=== PATIENT | male | born 1945 | race Caucasian/White ===

== ENCOUNTER 2017-11-24 07:41 | Emergency (ER) | payer OTHER, MEDICARE ==
[~2017-11-24] VITALS: Ht 167.6 cm; Wt 105.0 kg
[~2017-11-24 07:41] MED LIST: ASMANEX; COMBAER; ENAL5TAB98; TOPR25TA2
[2017-11-24 07:44] VITALS: BP 141/84; PULSE 103; RESP 16; TEMP 97.4; O2SAT 99
--- NOTE | 2017-11-24 08:08 | PD ---
HPI Chief Complaint: Edema Time Seen by Provider: 08:01 Travel History International Travel<30 days: No Contact w/Intl Traveler<30days: No Traveled to known affect area: No History of Present Illness HPI 72-year-old male patient with history of CAD status post stenting, previous [place], recent bouts of pneumonia, presents to the ER today for 2 weeks history of worsening leg swelling, he has also noted some coughing with green phlegm her last few days, states that he thinks he needs antibiotics for the lungs. He had been seen recently at another hospital and had been given steroids. He denies any fevers, chest pains, abdominal pains, or any other symptoms. He denies orthopnea. Modifying Factors: None Associated Signs & Symptoms: Bilateral leg swelling for 2 weeks, coughing with green phlegm Risk Factors: Cardiac history PFSH Past Medical History Hx Anticoagulant Therapy: Yes Arthritis: No Asthma: No Autoimmune Disease: No Blood Disorders: No Anxiety: No Depression: No Heart Rhythm Problems: No Cancer: No Cardiovascular Problems: Yes High Cholesterol: Yes Chemotherapy: No Chest Pain: Yes Congestive Heart Failure: No COPD: Yes Cerebrovascular Accident: No Coronary Artery Disease: Yes Diabetes: No Endocrine: No GERD: No Glaucoma: No Genitourinary: No Headaches: No Hepatitis: No Hiatal Hernia: No Hypertension: Yes Immune Disorder: No Kidney Stones: No Musculoskeletal: No Neurologic: No Psychiatric: No Respiratory: Yes Myocardial Infarction: Yes (1993) Radiation Therapy: No Renal Failure: No Seizures: No Sickle Cell Disease: No Sleep Apnea: No Thyroid Disease: No Ulcer: No Past Surgical History Abdominal Surgery: No AICD: No Cardiac Surgery: No Ear Surgery: No Endocrine Surgery: No Eye Surgery: No Genitourinary Surgery: No Gynecologic Surgery: No Joint Replacement: No Oral Surgery: No Pacemaker: No Thoracic Surgery: No Social History Alcohol Use: No ([employer] IS AN ALCOHOLIC SOBER FOR 1 YEAR) Tobacco Use: Yes (1PPD) Substance Use: Yes (SMOKED MARIJUANA RECENTLY QUIT, SMOKED COUPLE TIMES A WEEK FOR 40 YEARS) Allergies-Medications (Allergen,Severity, Reaction): Coded Allergies: No Known Allergies (Verified Allergy, Severe, 11/24/17) Reported Meds & Prescriptions Reported Meds & Active Scripts Active Reported Finasteride 5 Mg Tab 5 Mg PO DAILY Do not crush. Plavix (Clopidogrel Bisulfate) 75 Mg Tab 75 Mg PO DAILY Pravastatin 40 Mg Tab 40 Mg PO DAILY Combivent Respimat Inh (Ipratropium-Albuterol Inh) 20-100 Intermediate/Act Aero 1 Puff INH QID Metoprolol Succinate ER 24 HR (Metoprolol Succinate) 25 Mg Tab 25 Mg PO BID Review of Systems Except as stated in HPI: all other systems reviewed are Neg Physical Exam Narrative GENERAL: Well-developed elderly white male patient currently and mild distress. Awake and oriented 3. SKIN: Focused skin assessment warm/dry. HEAD: Atraumatic. Normocephalic. EYES: Pupils equal and round. No scleral icterus. No injection or drainage. ENT: No nasal bleeding or discharge. Mucous membranes pink and moist. NECK: Trachea midline. No JVD. Supple. CARDIOVASCULAR: Regular rate and rhythm. No murmur appreciated. RESPIRATORY: No accessory muscle use. Decreased throughout. Breath sounds equal bilaterally. GASTROINTESTINAL: Abdomen soft, non-tender, nondistended. Hepatic and splenic margins not palpable. MUSCULOSKELETAL: No obvious deformities. No clubbing. No cyanosis. +3 bilateral pitting leg edema. NEUROLOGICAL: Awake and alert. No obvious cranial nerve deficits. Motor grossly within normal limits. Normal speech. PSYCHIATRIC: Appropriate mood and affect; insight and judgment normal. Data Data Last Documented VS Vital Signs Date Time Temp Pulse Resp B/P (MAP) Pulse Ox O2 Delivery O2 Flow Rate FiO2 11/24/17 08:30 90 19 124/58 (80) 97 Room Air 11/24/17 08:17 2.00 11/24/17 07:44 97.4 Orders Orders Complete Blood Count With Diff (11/24/17 08:02) Comprehensive Metabolic Panel (11/24/17 08:02) B-Type Natriuretic Peptide (11/24/17 08:02) Act Partial Throm Time (Ptt) (11/24/17 08:02) Prothrombin Time / Inr (Pt) (11/24/17 08:02) Iv Access Insert/Monitor (11/24/17 08:02) Electrocardiogram (11/24/17 08:02) Ecg Monitoring (11/24/17 08:02) Oximetry (11/24/17 08:02) Oxygen Administration (11/24/17 08:02) Chest, Single Ap (11/24/17 08:02) Sodium Chloride 0.9% Flush (Ns Flush) (11/24/17 08:15) Us Leg Venous Doppler Bilat (11/24/17 08:02) Furosemide Inj (Lasix Inj) (11/24/17 09:15) Labs Laboratory Tests Test 11/24/17 08:05 White Blood Count 7.1 TH/MM3 Red Blood Count 4.19 MIL/MM3 Hemoglobin 13.7 GM/DL Hematocrit 41.1 % Mean Corpuscular Volume 98.0 FL Mean Corpuscular Hemoglobin 32.7 PG Mean Corpuscular Hemoglobin Concent 33.4 % Red Cell Distribution Width 14.5 % Platelet Count 270 TH/MM3 Mean Platelet Volume 8.1 FL Neutrophils (%) (Auto) 51.5 % Lymphocytes (%) (Auto) 33.9 % Monocytes (%) (Auto) 10.0 % Eosinophils (%) (Auto) 4.0 % Basophils (%) (Auto) 0.6 % Neutrophils # (Auto) 3.7 TH/MM3 Lymphocytes # (Auto) 2.4 TH/MM3 Monocytes # (Auto) 0.7 TH/MM3 Eosinophils # (Auto) 0.3 TH/MM3 Basophils # (Auto) 0.0 TH/MM3 CBC Comment DIFF FINAL Differential Comment Prothrombin Time 10.5 SEC Prothromb Time International Ratio 1.0 RATIO Activated Partial Thromboplast Time 27.4 SEC Blood Urea Nitrogen 8 MG/DL Creatinine 0.93 MG/DL Random Glucose 94 MG/DL Total Protein 7.3 GM/DL Albumin 3.4 GM/DL Calcium Level 8.6 MG/DL Alkaline Phosphatase 91 U/L Aspartate Amino Transf (AST/SGOT) 24 U/L Alanine Aminotransferase (ALT/SGPT) 28 U/L Total Bilirubin 0.3 MG/DL Sodium Level 143 MEQ/L Potassium Level 4.2 MEQ/L Chloride Level 107 MEQ/L Carbon Dioxide Level 30.3 MEQ/L Anion Gap 6 MEQ/L Estimat Glomerular Filtration Rate 80 ML/MIN B-Type Natriuretic Peptide 16 PG/ML MDM Medical Decision Making Medical Screen Exam Complete: Yes Emergency Medical Condition: Yes Medical Record Reviewed: Yes Interpretation(s) EKG shows normal sinus rhythm at a rate of 90 bpm. No signs of acute ST elevations or depressions. Laboratory Tests Test 11/24/17 08:05 Red Blood Count 4.19 MIL/MM3 (4.50-5.90) Monocytes (%) (Auto) 10.0 % (0.0-8.0) Estimat Glomerular Filtration Rate 80 ML/MIN (>89) Last 24 hours Impressions Lower Extremity Ultrasound 11/24/17801 Signed Impressions: Service Date/Time: Friday, November 24, 2017 08:35 - CONCLUSION: Left-sided subcutaneous edema. No evidence of DVT within either leg.. Lauren Santana MD Chest X-Ray 11/24/17801 Signed Impressions: Service Date/Time: Friday, November 24, 2017 08:18 - CONCLUSION: Normal examination. Lauren Santana MD Differential Diagnosis Bilateral leg edema, coughing with green phlegm: CHF versus DVT/PE versus pneumonia/bronchitis Narrative Course Chest x-ray did not show any signs of acute pulmonary processes. Ultrasounds of the leg does not reveal any signs of DVT. Patient was given a small dose of Lasix while in the ER. BNP is fairly unremarkable. At this point, he may have some underlying bronchitis but he does not have any signs of pulmonary edema. He has an appointment with his physicians on Sunday my plan would be to release him at this point with follow-up his primary care doctor. We will give him a small dose of diuretic to help with the leg edema. Return for worsening in symptoms as necessary. The plan was discussed with him he states understanding. Diagnosis Primary Impression: Leg edema Additional Impression: Bronchitis Med/Other Pt SpecificInfo: Prescription(s) given Scripts Prednisone (Prednisone) 50 Mg Tab 50 MG PO DAILY for 5 Days, #5 TAB 0 Refills Prov: Rowena Sarabia MD 11/24/17 Albuterol 6.7 GM Inh (Proventil Hfa 6.7 GM Inh) 90 Mcg/Act Aer 2 PUFF INH Q4-6H Y for SHORTNESS OF BREATH, #1 INHALER 0 Refills Prov: Rowena Sarabia MD 11/24/17 Azithromycin (Zithromax Z-Kaiden) 250 Mg Dspk 250 MG PO DIRECTED for Infection, #1 DSPK 0 Refills 500 MG (2 tabs) day 1, then 1 tab days 2-5. Prov: Rowena Sarabia MD 11/24/17 Furosemide (Lasix) 20 Mg Tab 20 MG PO DAILY, #7 TAB 0 Refills Prov: Rowena Sarabia MD 11/24/17 Disposition: 01 DISCHARGE HOME Condition: Stable Rowena Sarabia MD Nov 24, 2017 08:08
[2017-11-24] MEDS ORDERED: SODIUM CHLORIDE 0.9% FLUSH 10 ML FLUSH IVF PRN (08:15)
[2017-11-24 08:16] VITALS: BP 127/70; PULSE 94; RESP 18; O2SAT 93
[2017-11-24] MEDS ORDERED: METO1TAB42 PO (08:19)
[2017-11-24] MEDS ORDERED: IPRAAER INH (08:19)
[2017-11-24] MEDS ORDERED: PLAV75TA29 PO (08:20)
[2017-11-24] MEDS ORDERED: PRAV40TA2 PO (08:20)
[2017-11-24] MEDS ORDERED: FINA5TAB2 PO (08:22)
[2017-11-24 08:26] LABS: AUTOMATED NEUTROPHIL # 3.7 TH/MM3 (1.8-7.7); BASOPHIL % 0.6 % (0.0-2.0); EOSINOPHIL # 0.3 TH/MM3 (0-0.4); HEMATOCRIT 41.1 % (39.0-51.0); HEMOGLOBIN 13.7 GM/DL (13.0-17.0); LYMPH % 33.9 % (9.0-44.0); LYMPHOCYTE # 2.4 TH/MM3 (1.0-4.8); MEAN CORPUSCULAR HEMOGLOBIN 32.7 PG (27.0-34.0); MEAN CORPUSCULAR HGB CONC 33.4 % (32.0-36.0); MEAN PLATELET VOLUME 8.1 FL (7.0-11.0); MONOCYTE # 0.7 TH/MM3 (0-0.9); NEUT % 51.5 % (16.0-70.0); PLATELET COUNT 270 TH/MM3 (150-450); RED BLOOD COUNT 4.19 MIL/MM3 (4.50-5.90); RED CELL DISTRIBUTION WIDTH 14.5 % (11.6-17.2); WHITE BLOOD COUNT 7.1 TH/MM3 (4.0-11.0)
[2017-11-24 08:30] VITALS: BP 124/58; PULSE 90; RESP 19; O2SAT 97
[2017-11-24 08:36] LABS: PROTHROMBIN TIME - PATIENT 10.5 SEC (9.8-11.6)
--- NOTE | 2017-11-24 08:36 | RADRPT ---
EXAM DATE/TIME: 11/24/2017 08:18 [facility] COMPARISON: No previous studies available for comparison. INDICATIONS : Shortness of breath and cough. MEDICAL HISTORY : Hypertension. SURGICAL HISTORY : 2 cardiac stents. ENCOUNTER: Initial ACUITY: 2 days PAIN SCORE: 0/10 LOCATION: chest FINDINGS: A single view of the chest demonstrates the lungs to be symmetrically aerated without evidence of mas s, infiltrate or effusion. The cardiomediastinal contours are unremarkable. Osseous structures are intact. CONCLUSION: Normal examination. Lauren Santana MD on November 24, 2017 at 8:34 Board Certified Radiologist. This report was verified electronically.
[2017-11-24 08:51] LABS: ALBUMIN 3.4 GM/DL (3.4-5.0); ALT (GPT) 28 U/L (12-78); AST (GOT) 24 U/L (15-37); BICARBONATE 30.3 MEQ/L (21.0-32.0); BLOOD UREA NITROGEN 8 MG/DL (7-18); CALCIUM 8.6 MG/DL (8.5-10.1); CHLORIDE 107 MEQ/L (98-107); CREATININE 0.93 MG/DL (0.60-1.30); GLOMERULAR FILTRATION RATE 80 ML/MIN (>89); GLUCOSE,RANDOM 94 MG/DL (74-106); SODIUM (NA) 143 MEQ/L (136-145)
[2017-11-24 08:53] LABS: ALKALINE PHOSPHATASE 91 U/L (45-117); TOTAL BILIRUBIN ADULT 0.3 MG/DL (0.2-1.0); TOTAL PROTEIN 7.3 GM/DL (6.4-8.2)
--- NOTE | 2017-11-24 08:56 | RADRPT ---
EXAM DATE/TIME: 11/24/2017 08:35 [facility] COMPARISON: No previous studies available for comparison. EXTERNAL COMPARISON : [facility], Right leg venous ultrasound, February 07, 2013 INDICATIONS : Bilateral leg swelling. MEDICAL HISTORY : [place]. CAD. HTN. COPD. SURGICAL HISTORY : Cardiac catheterization. ENCOUNTER: Initial ACUITY: 2 weeks PAIN SCORE: 0/10 LOCATION: Bilateral leg. TECHNIQUE: Venous ultrasound of the left and right leg was performed from the inguinal ligament to the proximal calf. Real-time, color Doppler and spectral tracing, compression and augmentation techniques were us ed. FINDINGS: RIGHT LEG: There is normal compressibility of the deep venous system from the inguinal region to the proximal ca lf. No echogenic clot is seen in the lumen of the common femoral, femoral, popliteal, and posterior tibial veins. There is a normal response of the venous system to proximal and distal augmentation an d respiration. LEFT LEG: There is normal compressibility of the deep venous system from the inguinal region to the proximal ca lf. No echogenic clot is seen in the lumen of the common femoral, femoral, popliteal, and posterior tibial veins. There is a normal response of the venous system to proximal and distal augmentation an d respiration. Subcutaneous edema is identified in the region of the popliteal fossa and along the l eft calf. CONCLUSION: Left-sided subcutaneous edema. No evidence of DVT within either leg.. Lauren Santana MD on November 24, 2017 at 8:52 Board Certified Radiologist. This report was verified electronically.
[2017-11-24] MEDS ORDERED: FUROSEMIDE 20 MG/2 ML VIAL IV PUSH ONE (09:15)
[2017-11-24 09:30] VITALS: BP 133/65; PULSE 96; RESP 22; O2SAT 99
[2017-11-24] MEDS ORDERED: ALBU6.7H INH (09:58)
[2017-11-24] MEDS ORDERED: PRED50 PO (09:58)
[2017-11-24] MEDS ORDERED: ZITHTAB PO (09:58)
[2017-11-24] MEDS ORDERED: FURO1TAB62 PO (09:58)
--- NOTE | 2017-11-26 09:30 | EKG ---
Date Performed: 11/24/2017 Time Performed: 08:11:56 PTAGE: 72 years EKG: Sinus rhythm Small inferior Q-waves of undetermined significance Minor nonspecific T-wave change PREVIOUS TRACING : 02/11/2006 19.09 Since previous tracing, there is some improvement in the R-forces in leads V2 and V3, otherwise no significant change. DOCTOR: Nic Hall Interpretating Date/Time 11/26/2017 09:30:08
== END 2017-11-24 10:27 | disposition home or self-care (01) ==
LOC: NEPC 07:41
DX: R60.0 Localized edema (principal); J40 Bronchitis, not specified as acute or chronic; I10 Essential (primary) hypertension; I25.10 Atherosclerotic heart disease of native coronary artery without angina pectoris; E78.00 Pure hypercholesterolemia, unspecified; J44.9 Chronic obstructive pulmonary disease, unspecified; I25.2 Old myocardial infarction; F17.210 Nicotine dependence, cigarettes, uncomplicated; Z79.899 Other long term (current) drug therapy
CPT/HCPCS: 71045; 80053; 83880; 85025; 85610; 85730; 93005; 93970; 96374; 99285; J1940